=== PATIENT | male | born 1985 ===

== ENCOUNTER 2017-11-13 14:17 | Emergency (ER) | payer OTHER ==
--- NOTE | 2017-11-13 14:58 | ED PDOC ---
Arrival/HPI - General Time Seen by Provider: 11/13/17 14:58 Historian: Patient - History of Present Illness Narrative History of Present Illness (Text): 11/13/17 14:58 Patient was just placed in ED room 11/13/17 15:08 This 32 yo male who denies pmh, presents to this ED c/o left wrist laceration x [employer]. Patient stated he accidently cut wrist with a broken glass. Last tetanus was over 10 years ago. Patient is right hand dominant. Patient denies other somatic complains, SI, or HI. Patient stated he has good feeling on his left hand , and finger with 5/5 ROM on the affected wrist/hand and fingers. Time/Duration: Other (see hpi) Context: Home Past Medical History - Provider Review Nursing Documentation Reviewed: Yes Family/Social History - Physician Review Nursing Documentation Reviewed: Yes Family/Social History: Other (noncontributory) Allergies/Home Meds Allergies/Adverse Reactions: Allergies No Known Allergies Allergy (Verified 11/13/17 15:03) Home Medications: Home Meds Medication Instructions Recorded Confirmed No Known Home Med 11/13/17 11/13/17 Review of Systems - Review of Systems Constitutional: Normal. absent: Fatigue, Weight Change, Fevers Eyes: Normal ENT: Normal Respiratory: Normal Cardiovascular: Normal Gastrointestinal: Normal Genitourinary Male: Normal Musculoskeletal: Other (left wrist laceration) Skin: Normal Neurological: Normal Endocrine: Normal Hemo/Lymphatic: Normal Psychiatric: Normal Physical Exam Vital Signs Temp Pulse Resp BP Pulse Ox 11/13/17 15:10 98.2 F 68 20 132/81 99 Temperature: Afebrile Blood Pressure: Normal Pulse: Regular Respiratory Rate: Normal Appearance: Positive for: Well-Appearing, Non-Toxic, Comfortable Pain Distress: None Mental Status: Positive for: Alert and Oriented X 3 - Systems Exam Head: Present: Atraumatic, Normocephalic Mouth: Present: Moist Mucous Membranes Upper Extremity: Present: Normal ROM, NORMAL PULSES, Neurovascularly Intact, Capillary Refill < 2s, Other ((+) 7 cm laceration, irregular shape over left wrist, palmar side. No deep structures or FB visualized). No: Cyanosis, Edema , Tenderness, Swelling, Erythema Lower Extremity: Present: Normal Inspection, Normal ROM Neurological: Present: GCS=15, CN II-XII Intact, Speech Normal, Motor Func Grossly Intact, Normal Sensory Function, Normal Cerebellar Funct, Gait Normal, Memory Normal Skin: Present: Warm, Dry, Normal Color. No: Rashes Psychiatric: Present: Alert, Oriented x 3, Normal Insight, Normal Concentration Medical Decision Making ED Course and Treatment: 11/13/17 15:54 Re-evaluation. Patient feels better. Discussed results and plan with patient who expresses understanding. All questions answered and there is agreement with the plan to discharge home with instructions. Patient stable for discharge. Return if symptoms persist or worsen. Patient was recommended to return in 10-12 days to have sutures removed, or sooner if wound becomes infected, and to f/u pmd in 2-3 days. Re-evaluation Time: 15:54 Reassessment Condition: Re-examined, Improved - Medication Orders Current Medication Orders: Discontinued Medications Tetanus/Reduced Diphtheria/Acell Pertussis (Boostrix Vaccine Inj) 0.5 ml IM .ONCE ONE Stop: 11/13/17 15:10 - Procedure PROCEDURE NOTE (Text): 11/13/17 15:55 PROCEDURE: LACERATION REPAIR Performed by the emergency provider Location: left wrist Length: 7 cm Description: clean wound edges, no foreign bodies Distal CMS: Normal. No deficits. Neurovascularly intact. Anesthesia: Lidocaine 1% with Epi, approx. 3 cc Preparation: The wound was cleaned with NS and [place]. The area was prepped and draped in the usual sterile fashion. Exploration: The wound was explored and no foreign bodies were found. Procedure: The wound was closed with Prolene, 4-0, interrupted, single layer. There was good approximation. In total, 9 sutures were used. Post-Procedure: Good closure and hemostasis. The patient tolerated the procedure well and there were no complications. CSM remains intact. Post procedure dressing applied. Disposition/Present on Arrival - Present on Arrival Any Indicators Present on Arrival: No History of DVT/PE: No History of Uncontrolled Diabetes: No Urinary Catheter: No History of Decub. Ulcer: No - Disposition Have Diagnosis and Disposition been Completed?: Yes Diagnosis: Laceration of wrist without complication Disposition: HOME/ ROUTINE Disposition Time: 16:01 Patient Plan: Discharge Patient Problems: Current Active Problems Problem Status Onset Laceration of wrist without complication Acute Condition: GOOD Discharge Instructions (ExitCare): Laceration Repair With Stitches (DC) Additional Instructions: Call private doctor for wound check in 2-3 days. Sutures needs to come out in 10-12 days. Keep wound clean and dry for 2 days, then clean wound daily with soap and water . Return to emergency if wound becomes infected. Referrals: PCP,NO [Primary Care Provider] - Follow up with primary Kylie Castillo MD [Staff Provider] - Follow up with primary [facility] [Outside] - Follow up with primary Forms: WORK NOTE
[2017-11-13] MEDS ORDERED: TDAP Vaccine 0.5 mL Syr IM ONE (15:09)
[2017-11-13 15:11] VITALS: BP 132/81; PULSE 68; TEMP 98.2; O2SAT 99
[2017-11-13 16:26] VITALS: RESP 16
== END 2017-11-13 16:23 | disposition home or self-care (01) ==
LOC: ED 14:17
DX: S61.512A Laceration without foreign body of left wrist, initial encounter (principal); W25.XXXA Contact with sharp glass, initial encounter; Y92.9 Unspecified place or not applicable; Z23 Encounter for immunization